=== PATIENT | male | born 1960 | race Caucasian/White ===

== ENCOUNTER 2016-05-18 08:02 | Emergency (ER) | payer OTHER ==
[~2016-05-18] VITALS: Wt 111.0 kg
[2016-05-18] MEDS ORDERED: CEFTRIAXONE 250 MG INJ IM ONE (08:30)
[2016-05-18] MEDS ORDERED: AZITHROMYCIN 250 MG TAB PO ONE (08:30)
[2016-05-18] MEDS ORDERED: LIDOCAINE 1% (MDV) 20 ML INJ SC ONE (08:30)
[2016-05-18 08:52] LABS: URINE BLOOD (Dip) POC Trace-intact (NEGATIVE)
[2016-05-18] MEDS ORDERED: POLY10DR19 BOTH EYES (08:59)
[2016-05-18] MEDS ORDERED: CIPR500T4 PO (09:01)
[2016-05-18] MEDS ORDERED: OFLO5DRO46 BOTH EYES (09:01)
--- NOTE | 2016-05-18 09:28 | ERD ---
ER Documentation Chief Complaint Date/Time DATE: 05/18/16 TIME: 09:19 Chief Complaint BILAT EYE REDNESS, DISCHARGE HPI Patient is a 55 year old male who presents to the ED for bilateral eye redness, drainage and itchiness x 1 day. He states that he has had symptoms like this in the past. He states that he woke up with yellow crusting and discharge in the mornings. He states they are both draining. He denies pain or swelling. He denies headache, blurry vision or dizziness. He denies use of contacts. Denies photophobia. Denies sensation of something in his eye. Denies nausea, vomiting or diarrhea, constipation. He also states that he has burning with urination and urgency x 2 days. He denies unprotected sexual intercourse. He denies flank pain. Denies fever or chills. Denies hematuria. He has a history of hypertension and takes amlodipine and benazapril. ROS All systems reviewed and are negative except as per history of present illness. Medications Home Meds Active Scripts Ciprofloxacin Hcl* (Ciprofloxacin Hcl*) 500 Mg Tablet, 500 MG PO BID for 7 Days , TAB Prov:RANDELL CASTILLO PA-C 05/18/16 Ofloxacin* (Ocuflox*) 0.3%-5 Ml Ophth Drops, 1 DROP BOTH EYES QID for 7 Days, BOTTLE Prov:RANDELL CASTILLO PA-C 05/18/16 Allergies Allergies: Coded Allergies: No Known Allergy (Verified Allergy, Unknown, 08/05/08) PMhx/Soc Medical and Surgical Hx: pt denies Medical Hx, pt denies Surgical Hx History of Surgery: No Anesthesia Reaction: No Hx Neurological Disorder: No Hx Respiratory Disorders: No Hx Cardiac Disorders: Yes (htn) Hx Psychiatric Problems: No Hx Miscellaneous Medical Probl: Yes (dm) Hx Alcohol Use: No Hx Substance Use: No Hx Tobacco Use: No Smoking Status: Never smoker Physical Exam Vitals Vital Signs Date Time Temp Pulse Resp B/P Pulse Ox O2 Delivery O2 Flow Rate FiO2 05/18/16 08:05 99.0 85 17 166/77 98 Physical Exam GENERAL: Well-developed, well-nourished male. Appears in no acute distress. HEAD: Normocephalic, atraumatic. EYES: Pupils are equally reactive bilaterally. EOMs grossly intact. bilateral erythamatous conjunctiva with yellow discharge. no exopthalmos. no foreign bodies. ENT: Moist mucous membranes. No uvula deviation. No kissing tonsils. No exudates. NECK: Supple. No lymphadenopathy or thyromegaly. No meningismus. negative kernig. negative brudinski. LUNG: Clear to auscultation bilaterally. No rhonchi, wheezing, rales or coarse breath sounds. No CVA tenderness. BACK: No midline tenderness. Extremities: Equal pulses bilaterally. No peripheral clubbing, cyanosis or edema. No unilateral leg swelling. NEUROLOGIC: Alert and oriented. Moving all four extremities. 5/5 strength in all extremities. Normal speech. Steady gait. Cranial nerves II through XII intact SKIN: Normal color. Warm and dry. No rashes or lesions. Capillary refill < 2 seconds Results 24 hrs Laboratory Tests Test 05/18/16 08:52 Bedside Urine Blood Trace-intact Bedside Urine Glucose (UA) 0.50% Bedside Urine Ketones (LAB) Negative Bedside Urine Leukocyte Esterase (L 2+ Bedside Urine Nitrite (LAB) Negative Bedside Urine Protein (LAB) Negative Bedside Urine pH (LAB) 5.5 Current Medications Medications (Trade) Dose Ordered Sig/Marycruz Route PRN Reason Start Time Stop Time Status Last Admin Dose Admin Ceftriaxone Sodium (Rocephin) 250 mg ONCE ONCE IM 05/18/16 08:30 05/18/16 08:33 DC 05/18/16 08:39 Azithromycin (Zithromax) 1,000 mg ONCE ONCE PO 05/18/16 08:30 05/18/16 08:33 DC 05/18/16 08:46 Lidocaine (Xylocaine 1% (Mdv) 20 ml) 20 ml ONCE ONCE SC 05/18/16 08:30 05/18/16 08:33 DC 05/18/16 08:39 Procedures/MDM ER COURSE: I kept the patient and/or family informed of laboratory and diagnostic imaging results throughout the emergency room course. MEDICATIONS: Rocephin, lidocaine, azithromycin. Patient tolerated medication well with no adverse reaction. LAB INTERPRETATION: UA showed 2+ leukocytes. Visual Acuity 20/20 bilaterally Urine culture sent. Eye culture sent MEDICAL DECISION MAKING: This is a 55-year-old male who presents with bilateral eye redness and urinary pain. Vital signs were reviewed. Patient is afebrile. Patient is not hypoxic. Patient is not toxic or ill-appearing. His blood pressure is 166/77. Low suspicion for intracranial hemorrhage, meningitis, intracranial mass, concussion , temporal arteritis, stroke, elevated intracranial pressure, seizure, hypertensive urgency, emergency, and organ damage. His eye symptoms are likely bacterial conjunctivitis, however cannot rule out gonorrhea conjunctivitis. Urine culture and gonorrhea chlamydia sent for culture as well as eye culture. Low suspicion for acute angle closure glaucoma, retinal detachment, arterial occlusion, hemorrhage, fracture, foreign body, ruptured globe, orbital cellulitis He does have a UTI. I have low suspicion for pyelonephritis, nephrolithiasis, septic stone or obstructive stone, Low suspicion for ACS, AAA, perforated ulcer , bowel obstruction, cholecystitis, choledocholithiasis, cholangitis, pancreatitis, hepatic abscess, appendicitis, diverticulitis, . He is afebrile and does not complain of CVA tenderness and does not have pain. DISCHARGE: At this time, patient is stable for discharge and outpatient management with no new complaints during the ER course. Patient was sent home with ciprofloxacin, ocuflox. Patient will be discharged home with instructions to recheck for new or worsening symptoms such as fever, nausea, weakness, LOC and to follow up with primary care in the next 1-2 days. Patient was advised to return to the ER for any new or worsening symptoms. Plan was discussed and patient and/or family understands and agrees. Home instructions were given. Departure Diagnosis: Primary Impression: Conjunctivitis Conjunctivitis type: unspecified Laterality: bilateral Qualified Code: H10.9 - Conjunctivitis of both eyes, unspecified conjunctivitis type Patient Instructions: Understanding Urinary Tract Infections (UTIs), What Is Conjunctivitis? Additional Instructions: Call your primary care doctor TOMORROW for an appointment during the next 1-2 days.See the doctor sooner or return here if your condition worsens before your appointment time. RANDELL CASTILLO PA-C May 18, 2016 09:28
== END 2016-05-18 10:01 | disposition home or self-care (01) ==
LOC: FTE 08:02
DX: H10.9 Unspecified conjunctivitis (principal); E11.9 Type 2 diabetes mellitus without complications; I10 Essential (primary) hypertension
CPT/HCPCS: 81003; 87070; 87086; 87591; J0696; Z7610; 96372

== ENCOUNTER 2018-08-24 01:00 | Emergency (ER) | payer OTHER ==
[~2018-08-24] VITALS: Ht 177.8 cm; Wt 110.6 kg
[~2018-08-24 01:00] MED LIST: CIPR500T4 PO; OFLO5DRO46 BOTH EYES
[2018-08-24 01:05] VITALS: BP 159/92; PULSE 95; RESP 20; Ht 177.8 cm; Wt 110.6 kg
[2018-08-24] MEDS ORDERED: CLOT30CR24 TOP (03:38)
[2018-08-24] MEDS ORDERED: HC30CR25 TOP (03:38)
--- NOTE | 2018-08-26 19:38 | ERD ---
ER Documentation Chief Complaint Chief Complaint painful urination x 1 week HPI 58 year ofl male presents with complaint of stinging when he urinates as well as a lesions on his foreskin for past week. Not taking treatments. Denies any unprotected intercourse, flank pain, vomiting, fevers, hematuria, testicular pain, penile discharge. . ROS All systems reviewed and are negative except as per history of present illness. Medications Home Meds Active Scripts Hydrocortisone* Topical (Hydrocortisone* Topical) 2.5%-28.3 Gm Cream..g., 1 APPLIC TOP BID for balanoposthotis, #1 TUB Prov:ELIN GUERIN 08/24/18 Clotrimazole* (Clotrimazole* AF) 1% - 30 Gm Cream.gm., 1 APPLIC TOP BID for balanoposthotis for 7 Days, TUB Prov:ELIN GUERIN 08/24/18 Ciprofloxacin Hcl* (Ciprofloxacin Hcl*) 500 Mg Tablet, 500 MG PO BID for 7 Days, TAB Prov:RANDELL CASTILLO PA-C 05/18/16 Ofloxacin* (Ocuflox*) 0.3%-5 Ml Ophth Drops, 1 DROP BOTH EYES QID for 7 Days, BOTTLE Prov:RANDELL CASTILLO PA-C 05/18/16 Allergies Allergies: Coded Allergies: No Known Allergy (Verified Allergy, Unknown, 08/05/08) PMhx/Soc History of Surgery: No Anesthesia Reaction: No Hx Neurological Disorder: No Hx Respiratory Disorders: No Hx Cardiac Disorders: Yes (htn) Hx Psychiatric Problems: No Hx Miscellaneous Medical Probl: Yes (dm) Hx Alcohol Use: No Hx Substance Use: No Hx Tobacco Use: No Smoking Status: Never smoker FmHx Family History: No diabetes, No coronary disease, No other Physical Exam Vitals Vital Signs Date Temp Pulse Resp B/P (MAP) Pulse Ox O2 O2 Flow FiO2 Time Delivery Rate 08/24/18 98.1 95 20 159/92 97 01:05 (114) Physical Exam Const: No acute distress Head: Atraumatic Eyes: Normal Conjunctiva ENT: Normal External Ears, Nose and Mouth. Neck: Full range of motion. No meningismus. Resp: Clear to auscultation bilaterally Cardio: Regular rate and rhythm, no murmurs Abd: Soft, non tender, non distended. Normal bowel sounds Skin: No petechiae or rashes Back: No midline or flank tenderness Ext: No cyanosis, or edema : Forsekin is edematous and erythematous with no paraphimosis noted. Glans is erythematous with white discharge noted. There is nodischarge noted from the urethra. Testicles are non edematous or TTP with normal lay. Scrotum is non edematous or erythmeatous with no TTP. Neur: Awake and alert Psych: Normal Mood and Affect Procedures/MDM MDM: Patient preseentation consistent with balanoposthitis. Patient given rx for clotrimazole and topical steroid. Educated on importance of daily cleansing underneath hussain foreskin. Foreskin is retractable. I have low suspicion for paraphimosis, torsion, UTI, or any emergent cndition. Pt discharegd with strict ER precations. Advised to follow up with PMD. All questions answered at discare. Departure Diagnosis: Primary Impression: Balanoposthitis Condition: Stable Patient Instructions: Balanoposthitis Referrals: [facility] YOU HAVE RECEIVED A MEDICAL SCREENING EXAM AND THE RESULTS INDICATE THAT YOU DO NOT HAVE A CONDITION THAT REQUIRES URGENT TREATMENT IN THE EMERGENCY DEPARTMENT. FURTHER EVALUATION AND TREATMENT OF YOUR CONDITION CAN WAIT UNTIL YOU ARE SEEN IN YOUR DOCTORS OFFICE WITHIN THE NEXT 1-2 DAYS. IT IS YOUR RESPONSIBILITY TO MAKE AN APPOINTMENT FOR FOLOW-UP CARE. IF YOU HAVE A PRIMARY DOCTOR --you should call your primary doctor and schedule an appointment IF YOU DO NOT HAVE A PRIMARY DOCTOR YOU CAN CALL OUR PHYSICIAN REFERRAL HOTLINE AT IF YOU CAN NOT AFFORD TO SEE A PHYSICIAN YOU CAN CHOSE FROM THE FOLLOWING [facility] [id number] [facility]. [facility] [address] [facility] [facility] [address] [facility] [facility] [address] [facility]. [facility] [address] [facility]. [facility]. [address] Additional Instructions: FOLLOW UP WITH YOUR PRIMARY CARE PHYSICIAN TOMORROW.Return to this facility if you are not improving as expected. ELIN GUERIN Aug 26, 2018 19:38
== END 2018-08-24 04:14 | disposition home or self-care (01) ==
LOC: FTE 01:00
DX: N47.6 Balanoposthitis (principal); I10 Essential (primary) hypertension; E11.9 Type 2 diabetes mellitus without complications
CPT/HCPCS: 99283